=== PATIENT | female | born 1995 | race Hispanic/Latino ===

== ENCOUNTER 2021-08-30 17:24 | Emergency (ER) | payer OTHER ==
[2021-08-30] MEDS ORDERED: MORPHINE 4 MG/1 ML INJ IM ONE (19:40)
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
[2021-08-31 00:38] VITALS: BP 122/87
== END 2021-08-31 00:59 | disposition home or self-care (01) ==
LOC: ED 17:24
DX: S13.9XXA Sprain of joints and ligaments of unspecified parts of neck, initial encounter (principal); V59.9XXA Occupant (driver) (passenger) of pick-up truck or van injured in unspecified traffic accident, initial encounter; Y93.89 Activity, other specified; Y92.520 Airport as the place of occurrence of the external cause; Y99.0 Civilian activity done for income or pay
CPT/HCPCS: 70450; 72125; 73562; 96372; 99284; J2270